=== PATIENT | female | born 1955 | race Caucasian/White ===

== ENCOUNTER 2017-06-07 06:16 | Day surgery (SDC) | payer OTHER ==
[~2017-06-07] VITALS: Ht 154.9 cm; Wt 100.2 kg
[~2017-06-07 06:16] MED LIST: ALEN35TA PO; CALC1TAB56 PO; DIVA250T7 PO; DIVA500T9 PO; FLUT1SPR2; LASI40TA PO; OMEP40CA2 PO; PROBCAP4 PO; SIMV20TA2 PO; TAB-TAB5 PO; VITA200016 PO
[2017-06-07] MEDS ORDERED: LR 1,000 ML IV SCH ×2 (06:30→10:00)
[2017-06-07] MEDS ORDERED: LIDOCAINE 1% SDV INJ 30 ML VIAL As Ordered ONE (06:58)
[2017-06-07] MEDS ORDERED: dexameTHASONE 4 MG/ML 1ML VIAL (J1100) As Ordered ONE (06:58)
[2017-06-07] MEDS ORDERED: BUPIVACAINE HCL 0.5% 30 ML VIAL As Ordered ONE (06:58)
[2017-06-07] MEDS ORDERED: MIDAZOLAM INJ 2 MG/2 ML VIAL (J2250) As Ordered ONE (07:56)
[2017-06-07] MEDS ORDERED: fentaNYL 100 MCG/2 ML INJECTION (J3010) As Ordered ONE ×3 (07:56→09:21)
[2017-06-07] MEDS ORDERED: PROPOFOL 200 MG/20 ML VIAL As Ordered ONE ×2 (07:56→08:24)
[2017-06-07] MEDS ORDERED: LIDOCAINE 2% INJ 100 MG/5 ML SDV (FOR ANES.) As Ordered ONE (07:56)
[2017-06-07] MEDS ORDERED: KETOROLAC 60 MG/2 ML VIAL (J1885) As Ordered ONE (09:16)
[2017-06-07] MEDS ORDERED: HYDR-3713 PO (09:30)
[2017-06-07] MEDS ORDERED: ONDANSETRON 4MG/2ML VIAL (J2405) IV PRN (10:00)
[2017-06-07] MEDS: PERCOCET 5MG/325MG TAB PO PRN ×2 (10:11→11:31)
[2017-06-07 12:15] VITALS: BP 167/73
--- NOTE | 2017-06-08 15:29 | RO ---
DATE OF PROCEDURE: 06/07/2017 PREPROCEDURE DIAGNOSIS: Right bunion with hallux valgus. POSTPROCEDURE DIAGNOSIS: Right bunion with hallux valgus. SURGEON: Eber Burroughs DPM ANALYSIS ENGINEER: None. PROCEDURE: Right bunionectomy and first metatarsal osteotomy and Stalin osteotomy. ANESTHESIA: Monitored anesthesia care with preoperative injection of 20 mL of a 1:1 mixture of 1% lidocaine plain and 0.5% Marcaine plain. ESTIMATED BLOOD LOSS: Minimal. MATERIALS: Arthrex 2.5 headless screw and 3.5 K wires, #3-0 Vicryl, #4-0 Vicryl, and #4-0 nylon. INJECTABLES: 1 mL Decadron. COMPLICATIONS: Bone cyst. CONDITION: Stable. Susana Grayson is a 61-year-old female who presents to [facility] with complaints of painful bunion with lateral deviation of her hallux. She presents today for surgical correction. The patient side and site were identified and marked in the preoperative holding area. Consent was reviewed and obtained. All risks, complications, and alternatives to the procedure were explained to the patient in detail. All questions were answered. DESCRIPTION OF PROCEDURE: The patient was brought to the operating room and placed on the operating room table in supine position. Monitored anesthesia care was delivered by the anesthesia team. A preoperative injection of 20 mL of 1:1 mixture of 1% lidocaine plain and 0.5% Marcaine plain were injected to the right foot. The right foot was prepped and draped in the normal sterile fashion. The patient received Ancef preoperatively. A tourniquet was applied to the right ankle and inflated at 250 mmHg. A dorsomedial incision was drawn and carried through with a #15 blade. Dissection was carried down to the metatarsophalangeal joint. The capsule was identified. Bovie was used to maintain hemostasis along the dissection plain. A T capsulotomy was performed, exposing the metatarsal head. Lateral release was performed, releasing the lateral capsule, adductor tendon, sesamoidal ligaments. McGlamry elevator was used to free the plantar structures. Following this, radial eminence was resected with a sagittal saw and an osteotomy was performed in the metatarsal head, transposing it laterally. This was initially fixated with an Arthrex 3.5 headless screw. Attention was paid to the proximal phalanx. Dissection was performed exposing the bone of the phalanx. An osteotomy was performed removing a wedge from the medial cortex and this was reduced, fixating it with an Arthrex 2.5 headless screw. Good correction was visualized on C-Arm. The metatarsal head was reinspected and the osteotomy was noted to be unstable. The screw was removed and an additional screw attempt was made; however, there was a cyst that was within the metatarsal head and good screw purchase was unable to be achieved. Two 3.5 K wires were thrown across the osteotomy site, stable fixation was obtained. These were bent and cut and left in position. The site was irrigated with normal saline. A small wedge of medial capsule was removed and capsule repair was performed with #3-0 Vicryl, subcutaneous closure with #4-0 Vicryl and skin closure with #4-0 nylon. 1 mL of Decadron was injected postoperatively. Sterile dressings were applied. Tourniquet was deflated. The patient was brought to postanesthesia care unit (PACU) with vital signs stable and neurovascular status intact. She will be partial weightbearing to her right foot. She will followup in my office in 2 days.
== END 2017-06-07 12:45 | disposition home or self-care (01) ==
LOC: M SDC 06:16
PROVIDERS: ATTEND Podiatrist Foot & Ankle Surgery
DX: M20.11 Hallux valgus (acquired), right foot (principal); F31.9 Bipolar disorder, unspecified; K58.9 Irritable bowel syndrome, unspecified; M17.12 Unilateral primary osteoarthritis, left knee; M21.622 Bunionette of left foot; I89.0 Lymphedema, not elsewhere classified; I10 Essential (primary) hypertension; E78.00 Pure hypercholesterolemia, unspecified; R60.0 Localized edema; K21.9 Gastro-esophageal reflux disease without esophagitis; R29.898 Other symptoms and signs involving the musculoskeletal system; M85.80 Other specified disorders of bone density and structure, unspecified site; R06.83 Snoring; Z88.5 Allergy status to narcotic agent; Z88.6 Allergy status to analgesic agent; Z79.899 Other long term (current) drug therapy; Z98.51 Tubal ligation status; Z96.653 Presence of artificial knee joint, bilateral
CPT/HCPCS: 28299; 88300; 97116; C1776